=== PATIENT | male | born 1990 | race Caucasian/White ===

== ENCOUNTER 2018-11-15 10:36 | Emergency (ER) | payer SELFPAY ==
--- NOTE | 2018-11-15 10:51 | ER Document Report ---
HPI - HPI Time Seen by Provider: 11/15/18 10:44 Pain Level: 4 Notes: 28-year-old male presents the ED for evaluation of right lower back pain, patient states he has had chronic back pain over the course of the last 3 to 4 years. Denies any recent trauma. States he is tried [id number] ibuprofen without full relief. Patient states he does have pain in the right lower back area, some radiation down towards his hip, does not extend past the knee. Patient has not been seen by her primary care provider for this issue, has not followed up with an aviation medicine specialist due to not having medical insurance. Denies fevers, chills, chest pain,palpitations, shortness of breath, dyspnea, nausea, vomiting, diarrhea, abdominal pain, hematuria, LH, dizziness, syncope, hneck pain, weakness, bowel or bladder dysfunction, saddle anesthesia, numbness or tingling in bilateral upper or lower extremities equally, muscle paralysis, weakness in bilateral upper or lower extremities equally or rash. - REPRODUCTIVE Reproductive: DENIES: : Past Medical History - General Information source: Patient - Social History Smoking Status: Unknown if Ever Smoked Family History: None Past Surgical History: Reports: Hx Adenoidectomy, Hx Tonsillectomy - adnoidectomy - Immunizations Immunizations up to date: Yes Hx Diphtheria, Pertussis, Tetanus Vaccination: Yes Vertical Provider Document - CONSTITUTIONAL Agree With Documented VS: Yes Exam Limitations: No Limitations General Appearance: WD/WN Notes: PHYSICAL EXAMINATION: GENERAL: Well-appearing, well-nourished and in no acute distress. HEAD: Atraumatic, normocephalic. EYES: Pupils equal round and reactive to light, extraocular movements intact, sclera anicteric, conjunctiva are normal. ENT: Nares patent, oropharynx clear without exudates. Moist mucous membranes. NECK: Normal range of motion, supple without lymphadenopathy LUNGS: Breath sounds clear to auscultation bilaterally and equal. No wheezes rales or rhonchi. HEART: Regular rate and rhythm without murmurs ABDOMEN: Soft, nontender, nondistended abdomen. No guarding, no rebound. No masses appreciated. Musculoskeletal: Normal range of motion, no pitting or edema. No cyanosis.Pain with flexion and extension at 60 degrees, negative straight leg test. Normal hip rotation. DTR +2 in BLE equally. Strength 5 out of 5 both distally and proximally to bilateral lower extremities normal motor and sensory function in BLE equally. Distal pulses + 2 BLE equally. Noted paraspinal tenderness near L2 and L3 on right. Strength 5 out of 5 in bilateral lower extremities equally. no spinal tenderness. No CVA tenderness bilaterally. Femoral pulses + 2 bilaterally and equally. No abrasions, scars, lacerations, ecchymosis of any recent trauma. normal gait. NEUROLOGICAL: Cranial nerves grossly intact. Normal speech, normal gait. Normal sensory, motor exams PSYCH: Normal mood, normal affect. SKIN: Warm, Dry, normal turgor, no rashes or lesions noted. - INFECTION CONTROL TRAVEL OUTSIDE OF THE [place] IN LAST 30 DAYS: No Course - Re-evaluation Re-evalutation: 11/15/18 11:06 Afebrile slightly hypertensive, recheck manual blood pressure showed 132/82. Nurse's notes reviewed. Patient does have point tenderness to his right lumbar paraspinal region, negative straight leg test. No recent trauma, I do not feel this patient needs a lumbar x-ray of his spine at this point in time due to no new injury, patient states this feels very similar to his previous episodes of sciatica. Discussed with patient following up with an aviation medicine specialist as well as a community care in clinic for management of his back pain. Discussed with patient that he does need to rest, apply warm packs to affected area for 20 minutes on 20 minutes off several times a day, take naproxen as directed, follow-up with primary care provider. After performing a Medical Screening Examination, I estimate there is LOW risk for EXPANDING OR RUPTURED ABDOMINAL AORTIC ANEURYSM, CAUDA EQUINA SYNDROME, EPIDURAL MASS ABSCESS OR LESION(S), OSTEOMYELITIS,PERSONAL HISTORY OF CANCER, IMMUNOSUPPERSSSION, HISTORY OF IV DRUG USE, FRACTURE, CORD COMPERSSION, CANCER, RETROPERITONEAL BLEED, SPINAL EPIDURAL HEMATOMA, or HERNIATED DISK CAUSING SEVERE SPINAL STENOSIS, thus I consider the discharge disposition reasonable. I have reevaluated this patient multiple times and no significant life threatening changes are noted. The patient and I have discussed the diagnosis and risks, and we agree with discharging home and close follow-up. We also discussed returning to the Emergency Department immediately if new or worsening symptoms occur with the understanding that symptoms and presentations can change. We have discussed the symptoms which are most concerning (e.g., saddle anesthesia, urinary or bowel incontinence or retention, changing or worsening pain) that necessitate immediate return such as severe pain, severe swelling, loss of bowel or bladder dysfunction, numbness or tingling in the groin region, numbness or tingling of pain going to any of his extremities, a fever greater than 100.4 or greater. - Vital Signs Vital signs: Temp Pulse Resp BP Pulse Ox 97.7 F 80 16 175/94 H 96 11/15/18 10:42 11/15/18 10:42 11/15/18 10:42 11/15/18 10:42 11/15/18 10:42 Discharge - Discharge Clinical Impression: Sciatica Qualifiers: Laterality: right Qualified Code(s): M54.31 - Sciatica, right side Condition: Stable Disposition: HOME, SELF-CARE Instructions: Muscle Strain ([facility]), Low Back Pain ([facility]), Warm Packs ([facility]), Pain Medication Injection ([facility]), [facility], Muscle Relaxers ([facility]) Additional Instructions: You have been seen in the Emergency Department (ED) today for back pain. Your workup and exam have not shown any acute abnormalities and you are likely suffering from muscle strain or possible problems with your discs, but there is no treatment that will fix your symptoms at this time. Please take the naproxen that has been prescribed as directed. You should also purchase a local lidocaine cream such as "aspercreme with lidocaine" and use per bottle instructions to the affected area. Apply heat to the area as often as you are able. Continue to keep active and avoid prolonged periods of bed rest. Please follow up with your doctor as soon as possible regarding today's ED visit and your back pain. Return to the ED for worsening back pain, fever, weakness or numbness of either leg, or if you develop either (1) an inability to urinate or have bowel movements, or (2) loss of your ability to control your bathroom functions (if you start having "accidents"), or if you develop other new symptoms that concern you.concern you. Prescriptions: Lidocaine/Menthol [Lidall 4%-1% Patch] 1 each TP TIDP PRN #20 adh..patch PRN Reason: Naproxen 500 mg PO BID #10 tablet Methocarbamol [Robaxin 500 mg Tablet] 500 mg PO QID PRN #15 tablet PRN Reason: Forms: Return to Work Referrals: JAZMINE SAUER MD [ACTIVE STAFF] - Follow up as needed TED SEPULVEDA MD [ACTIVE PROVISIONAL STAFF] - Follow up as needed
[2018-11-15] MEDS ORDERED: DEXAMETHASONE SOD PHOS INJ 10 MG/1 ML VIAL IM ONE (11:01)
[2018-11-15] MEDS ORDERED: KETOROLAC TROMETHAMINE 60 MG/2 ML SDV IM ONE (11:01)
[2018-11-15 11:14] VITALS: BP 132/82
== END 2018-11-15 11:41 | disposition home or self-care (01) ==
LOC: ER 10:36
DX: M54.41 Lumbago with sciatica, right side (principal); I10 Essential (primary) hypertension
CPT/HCPCS: J1885; J1100

== ENCOUNTER 2018-12-02 13:58 | Emergency (ER) | payer SELFPAY ==
[2018-12-02] MEDS ORDERED: KETOROLAC TROMETHAMINE 60 MG/2 ML SDV IM ONE (15:41)
[2018-12-02] MEDS ORDERED: DEXAMETHASONE SOD PHOS INJ 10 MG/1 ML VIAL IM ONE (15:41)
--- NOTE | 2018-12-02 15:44 | ER Document Report ---
HPI - HPI Patient complains to provider of: right side back pain Time Seen by Provider: 12/02/18 15:15 Onset: Other Quality of pain: Achy Severity: Severe Pain Level: 4 Context: This 28-year-old male presents emergency department with complaints of chronic right-sided low back pain. Patient has been here multiple times for the same complaint. Patient reports he was here recently seem to get better but flared up yesterday. 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 He denies urinary bowel incontinence or retention. Denies paresthesia. Denies fever vomiting diarrhea. Denies history of IV drug use denies history of steroid use. 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 IN LAST 30 DAYS: No - HEENT HEENT: Atraumatic, Normocephalic - NECK Neck: Normal Inspection, Supple. negative: Lymphadenopathy-Left, Lymphadenopathy-Right - RESPIRATORY Respiratory: Breath Sounds Normal, No Respiratory Distress - CARDIOVASCULAR Cardiovascular: Regular Rate - GI/ABDOMEN Gastrointestinal: Abdomen Soft, Abdomen Non-Tender - BACK Back: Normal Inspection - No obvious deformity good distal movement and sensation no weakness no erythema no swelling no warmth no vertebral tenderness. Complains of right-sided low back pain radiating down his right buttocks down his right leg. - MUSCULOSKELETAL/EXTREMETIES Musculoskeletal/Extremeties: MAEW, FROM, Non-Tender - NEURO Level of Consciousness: Awake, Alert, Appropriate Motor/Sensory: No Motor Deficit - DERM Integumentary: Warm, Dry, No Rash Adult Front & Back Diagram: 1 - reports pain 2 - radiates down right buttock, right leg Course - Re-evaluation Re-evalutation: 12/02/18 15:58 28-year-old male with reports of chronic right-sided back pain. Patient has been treated for multiple times for the same symptom. He has not followed up with a primary care provider because he does not have insurance. He is talking to someone about [facility]. Patient reports the Flexeril worked best his pain. - Vital Signs Vital signs: Temp Pulse Resp BP Pulse Ox 98.6 F 76 18 179/95 H 97 12/02/18 14:22 12/02/18 14:22 12/02/18 14:22 12/02/18 14:22 12/02/18 14:22 Discharge - Discharge Clinical Impression: Chronic low back pain with sciatica Qualifiers: Back pain laterality: right Sciatica laterality: sciatica of right side Qualified Code(s): M54.41 - Lumbago with sciatica, right side Condition: Stable Disposition: HOME, SELF-CARE Instructions: Family Physicians / Practices, Low Back Pain ([facility]), Muscle Relaxers ([facility]), Sciatica ([facility]), Steroid Medication Injection, Toradol Injection ([facility]) Additional Instructions: *You have been evaluated for back pain with sciatica *Take medication as prescribed *Rest/Ice- heat as indicated *Follow up with a primary care provider within one week for evaluation and treatment plan *Return to ED for worsening condition, changes, needs Monitor your blood pressure. Your blood pressure was elevated today. This may be because you were anxious, in pain or because you need medication. It is important to follow up with your primary care provider for full evaluation. Prescriptions: Cyclobenzaprine HCl [Flexeril 10 Mg Tablet] 10 mg PO TID #20 tablet Forms: Elevated Blood Pressure, Return to Work
[2018-12-02 16:05] VITALS: BP 178/95
== END 2018-12-02 16:06 | disposition home or self-care (01) ==
LOC: ER 13:58
DX: M54.41 Lumbago with sciatica, right side (principal); M54.9 Dorsalgia, unspecified; G89.29 Other chronic pain
CPT/HCPCS: 99283; 96372; J1885; J1100